=== PATIENT | female | born 1950 | race Caucasian/White ===

== ENCOUNTER 2018-06-08 11:07 | Inpatient (IN) | payer MEDICARE, OTHER ==
[~2018-06-08] VITALS: Ht 167.6 cm; Wt 114.6 kg
[~2018-06-08 11:07] MED LIST: EFFEXOR XR75 MG/CAP PO; NORCO 325 MG-51 TAB PO; RISPERDAL3 MG; RISPERDAL3 MG PO; SEROQUEL XR150 MG PO; ZITHROMAX Z PA250 MG PO; ZOCOR 40MG40 MG PO; ZOLOFT; ZOLOFT 100MG100 MG; [UNRECOGNIZED DRUG - OTHER]
[2018-06-08 11:52] LABS: BASO % 0.2 % (0.0-2.0); EOS % 0.1 % (0-4.0); GRAN # 9.1 (1.4-6.5); HEMATOCRIT 42.5 % (37.0-47.0); HEMOGLOBIN 14.3 g/dl (12.5-16.0); LYMPH # 0.4 (1.2-3.4); LYMPH % 4.2 % (20.0-51.0); MEAN CELL VOLUME 91 fl (80.0-100.0); MEAN CORPUSCULAR HEMOGLOBIN 31 pg (27.0-31.0); MEAN CORPUSCULAR HGB CONC 34 g/dl (33.0-37.0); MEAN PLATELET VOLUME 10.9 fl (7.4-10.4); MONO # 0.7 (0.1-0.6); MONO % 6.8 % (1.7-9.3); PLATELET COUNT 109 K/mm3 (130-400); RED BLOOD COUNT 4.68 M/mm3 (4.10-5.30); REDCELL DISTRIBUTION WIDTH-CV 12.5 % (11.5-14.5)
[2018-06-08 11:55] LABS: INR 1.2 (0.8-3.0); PROTHROMBIN TIME 13.3 SECONDS (9.7-12.8)
[2018-06-08 12:05] LABS: ALANINE AMINOTRANSFERASE 65 U/L (9-52); ALKALINE PHOSPHATASE 156 U/L (50-136); ANION GAP 11 mmol/L (7-16); AST,SGOT 75 U/L (15-37); BILIRUBIN,TOTAL 2.7 mg/dL (0.0-1.0); BLOOD UREA NITROGEN 15 mg/dL (7-17); CALCIUM 8.7 mg/dL (8.4-10.2); CARBON DIOXIDE 24 mmol/L (22-30); CHLORIDE 98 mmol/L (98-107); CREATININE, serum 0.84 mg/dL (0.52-1.25); GLUCOSE 114 mg/dL (74-106); POTASSIUM 4.1 mmol/L (3.4-5.0); SODIUM 133 mmol/L (137-145)
[2018-06-08 12:17] LABS: C-REACTIVE PROTEIN 23.2 mg/dL (0.0-0.9); TROPONIN-I < 0.012 ng/mL (0.000-0.034)
[2018-06-08] MEDS ORDERED: PRAVACHOL 40MG40 MG PO (14:13)
[2018-06-08] MEDS ORDERED: EFFEXOR-XR150 MG PO (14:13)
[2018-06-08] MEDS ORDERED: RT ALBUTER2.5 MG/0.5 IH (14:15)
[2018-06-08 14:33] LABS: ARTERIAL BLD GAS O2 SATURATION 93.5 % (92-100); ARTERIAL BLD GAS TCO2 CT 24.6; ARTERIAL BLOOD GAS BASE EXCESS -0.6 (-2-2); ARTERIAL BLOOD GAS HCO3 23.4 meq/L (22-26); ARTERIAL BLOOD GAS PCO2 36.8 mmHg (35-45); ARTERIAL BLOOD GAS PO2 67.4 mmHg (80-100); ARTERIAL BLOOD GAS pH 7.42 (7.35-7.45)
[2018-06-08 15:36] VITALS: BP 128/58; PULSE 101; TEMP 98.3
[2018-06-08 21:11] VITALS: BP 125/66; PULSE 91; TEMP 97.8
[2018-06-09] VITALS (9 sets, daily range): BP systolic 100–160; BP diastolic 53–79; PULSE 69–150; TEMP 97.3–102.9
[2018-06-09 00:45] LABS: COAG INR 1.3 (0.9-1.2)
[2018-06-09 08:13] LABS: BASO % 0.2 % (0.0-2.0); GRAN # 5.5 (1.4-6.5); GRAN % 89.8 % (42.2-75.2); HEMATOCRIT 39.5 % (37.0-47.0); HEMOGLOBIN 12.8 g/dl (12.5-16.0); LYMPH # 0.5 (1.2-3.4); LYMPH % 7.7 % (20.0-51.0); MEAN CELL VOLUME 93 fl (80.0-100.0); MEAN CORPUSCULAR HEMOGLOBIN 30 pg (27.0-31.0); MEAN CORPUSCULAR HGB CONC 32 g/dl (33.0-37.0); MEAN PLATELET VOLUME 11.2 fl (7.4-10.4); MONO # 0.1 (0.1-0.6); PLATELET COUNT 123 K/mm3 (130-400); RED BLOOD COUNT 4.25 M/mm3 (4.10-5.30); REDCELL DISTRIBUTION WIDTH-CV 12.5 % (11.5-14.5)
[2018-06-09 08:26] LABS: ALBUMIN 3.5 gm/dL (3.5-5.0); BILIRUBIN,TOTAL 1.7 mg/dL (0.0-1.0); CALCIUM 8.6 mg/dL (8.4-10.2); CREATININE, serum 0.67 mg/dL (0.52-1.25); POTASSIUM 3.4 mmol/L (3.4-5.0); TOTAL PROTEIN 7.2 gm/dL (6.4-8.2)
[2018-06-09 10:06] LABS: FACTOR V LEIDEN MUTATION B Negative (Negative); PARTIAL THROMBLASTIN TIME 31.5 seconds (25.0-35.0); PT G20210A MUTATION B Negative (Negative)
[2018-06-10] VITALS (7 sets, daily range): BP systolic 91–125; BP diastolic 57–66; PULSE 90–113; TEMP 97.4–97.8
[2018-06-10 03:09] LABS: COLLECTION METHOD CLEAN CATCH
[2018-06-10 03:51] LABS: GRANULAR CAST >12 /lpf; HYALINE CAST >12 /lpf; MUCOUS Present /lpf; PH 5 (5-8); RED BLOOD CELL CAST >12 /lpf; URINE APPEARANCE Cloudy; URINE BACTERIA Rare /hpf; URINE BILIRUBIN Positive (NEGATIVE); URINE BLOOD 2+ (NEGATIVE); URINE COLOR Amber; URINE GLUCOSE Negative (NEGATIVE); URINE KETONE Negative (NEGATIVE); URINE LEUKOCYTE ESTERASE Trace (NEGATIVE); URINE NITRATE Negative (NEGATIVE); URINE PROTEIN(semi-quant) 2+ (NEGATIVE); URINE UROBILINOGEN >=4.0 mg/dL (NEGATIVE)
[2018-06-11 03:01] VITALS: BP 127/67; PULSE 98; TEMP 97.8
[2018-06-11 06:05] LABS: HEMOGLOBIN 11.2 g/dl (12.5-16.0); MEAN CELL VOLUME 93 fl (80.0-100.0); MEAN CORPUSCULAR HEMOGLOBIN 30 pg (27.0-31.0); MEAN CORPUSCULAR HGB CONC 33 g/dl (33.0-37.0); MEAN PLATELET VOLUME 11.6 fl (7.4-10.4); PLATELET COUNT 119 K/mm3 (130-400); RED BLOOD COUNT 3.71 M/mm3 (4.10-5.30); REDCELL DISTRIBUTION WIDTH-CV 13.2 % (11.5-14.5)
[2018-06-11 06:08] LABS: HEMATOCRIT 34.4 % (37.0-47.0)
[2018-06-11 06:13] LABS: ALBUMIN 2.8 gm/dL (3.5-5.0); BILIRUBIN,TOTAL 0.5 mg/dL (0.0-1.0); CALCIUM 8.2 mg/dL (8.4-10.2); CREATININE, serum 0.81 mg/dL (0.52-1.25); POTASSIUM 3.6 mmol/L (3.4-5.0); TOTAL PROTEIN 6.1 gm/dL (6.4-8.2)
[2018-06-11 07:06] LABS: BAND 43 % (0-10); LYMPHOCYTE 7 % (20.0-51.0); METAMYELOCYTE 1 % (0-0); NEUTROPHILS 47 % (42.0-75.2)
[2018-06-11 07:07] LABS: HYPOCHROMIA 1+; PLATELET ESTIMATE DECREASED (NORMAL)
[2018-06-11 07:08] LABS: DOHLE BODIES PRESENT
[2018-06-11 07:42] VITALS: BP 119/72; PULSE 87; TEMP 97.8
[2018-06-11 10:31] LABS: HEMOGLOBIN 12.1 g/dl (12.5-16.0); MEAN CELL VOLUME 92 fl (80.0-100.0); MEAN CORPUSCULAR HEMOGLOBIN 30 pg (27.0-31.0); MEAN CORPUSCULAR HGB CONC 33 g/dl (33.0-37.0); MEAN PLATELET VOLUME 12.1 fl (7.4-10.4); PLATELET COUNT 128 K/mm3 (130-400); RED BLOOD COUNT 4.01 M/mm3 (4.10-5.30); REDCELL DISTRIBUTION WIDTH-CV 13.3 % (11.5-14.5)
[2018-06-11 10:32] LABS: HEMATOCRIT 36.8 % (37.0-47.0)
[2018-06-11 10:48] LABS: BAND 44 % (0-10); LYMPHOCYTE 5 % (20.0-51.0); NEUTROPHILS 51 % (42.0-75.2); PLATELET ESTIMATE DECREASED (NORMAL)
[2018-06-11 13:08] VITALS: BP 119/67; PULSE 91; TEMP 97.6
[2018-06-11 16:22] VITALS: BP 132/70; PULSE 86; TEMP 97.8
[2018-06-11 20:41] VITALS: BP 131/62; PULSE 85; TEMP 97.6
[2018-06-12 03:50] VITALS: BP 108/61; PULSE 75; TEMP 98.3
[2018-06-12 06:52] LABS: HEMOGLOBIN 11.6 g/dl (12.5-16.0); MEAN CELL VOLUME 92 fl (80.0-100.0); MEAN CORPUSCULAR HEMOGLOBIN 30 pg (27.0-31.0); MEAN CORPUSCULAR HGB CONC 33 g/dl (33.0-37.0); MEAN PLATELET VOLUME 11.3 fl (7.4-10.4); PLATELET COUNT 130 K/mm3 (130-400); RED BLOOD COUNT 3.85 M/mm3 (4.10-5.30); REDCELL DISTRIBUTION WIDTH-CV 13.2 % (11.5-14.5)
[2018-06-12 06:54] VITALS: BP 151/85; PULSE 82; TEMP 98.4
[2018-06-12 06:59] LABS: HEMATOCRIT 35.3 % (37.0-47.0)
[2018-06-12 07:05] LABS: ALBUMIN 2.9 gm/dL (3.5-5.0); BILIRUBIN,TOTAL 0.3 mg/dL (0.0-1.0); CREATININE, serum 0.61 mg/dL (0.52-1.25); POTASSIUM 3.7 mmol/L (3.4-5.0); TOTAL PROTEIN 6.2 gm/dL (6.4-8.2)
[2018-06-12 07:28] LABS: BAND 15 % (0-10); LYMPHOCYTE 10 % (20.0-51.0); NEUTROPHILS 72 % (42.0-75.2); PLATELET ESTIMATE NORMAL (NORMAL)
[2018-06-12 08:29] LABS: ANTI-THROMBIN III 69 % (72-128)
[2018-06-12 08:33] LABS: PROTEIN C ACTIVITY 50 % (70-150)
[2018-06-12 08:39] LABS: INR 1.1 (0.8-3.0); PROTHROMBIN TIME 12.3 SECONDS (9.7-12.8)
[2018-06-12 10:40] LABS: COLLECTION METHOD CLEAN CATCH
[2018-06-12 10:46] LABS: MUCOUS Present /lpf; PH 6 (5-8); SQUAMOUS EPITHELIAL 0-2 /hpf; URINE APPEARANCE Clear; URINE BACTERIA None Seen /hpf; URINE BILIRUBIN Negative (NEGATIVE); URINE BLOOD 1+ (NEGATIVE); URINE COLOR Yellow; URINE GLUCOSE Negative (NEGATIVE); URINE KETONE Negative (NEGATIVE); URINE LEUKOCYTE ESTERASE Negative (NEGATIVE); URINE NITRATE Negative (NEGATIVE); URINE PROTEIN(semi-quant) Negative (NEGATIVE); URINE RBC 0-2 /hpf; URINE UROBILINOGEN Negative (NEGATIVE)
[2018-06-12 11:21] VITALS: BP 137/78; PULSE 73; TEMP 98.7
[2018-06-12 13:28] LABS: LUPUS ANTICOAGULANT INR 1.5 (()); LUPUS ANTICOAGULANT PT 16.4 sec (())
[2018-06-12 15:27] VITALS: BP 152/85; PULSE 79; TEMP 97.7
[2018-06-12 19:56] VITALS: BP 132/70; PULSE 78; TEMP 98.5
[2018-06-13 00:32] VITALS: BP 134/76; PULSE 74; TEMP 98.7
[2018-06-13 04:06] VITALS: BP 135/89; PULSE 70; TEMP 98.6
[2018-06-13 06:24] LABS: HEMOGLOBIN 11.3 g/dl (12.5-16.0); MEAN CELL VOLUME 93 fl (80.0-100.0); MEAN CORPUSCULAR HEMOGLOBIN 30 pg (27.0-31.0); MEAN CORPUSCULAR HGB CONC 32 g/dl (33.0-37.0); MEAN PLATELET VOLUME 11.3 fl (7.4-10.4); PLATELET COUNT 144 K/mm3 (130-400); RED BLOOD COUNT 3.78 M/mm3 (4.10-5.30); REDCELL DISTRIBUTION WIDTH-CV 13.5 % (11.5-14.5)
[2018-06-13 06:26] LABS: INR 1.2 (0.8-3.0)
[2018-06-13 06:28] LABS: HEMATOCRIT 35.3 % (37.0-47.0)
[2018-06-13 06:36] LABS: ALBUMIN 2.7 gm/dL (3.5-5.0); BILIRUBIN,TOTAL 0.3 mg/dL (0.0-1.0); CALCIUM 7.6 mg/dL (8.4-10.2); CREATININE, serum 0.6 mg/dL (0.52-1.25); POTASSIUM 3.9 mmol/L (3.4-5.0)
[2018-06-13 06:56] VITALS: BP 131/84; PULSE 68; TEMP 97.7
[2018-06-13 11:34] VITALS: BP 155/88; PULSE 77; TEMP 97.5
[2018-06-13 15:27] VITALS: BP 142/84; PULSE 72; TEMP 97.9
[2018-06-13 20:10] VITALS: BP 142/83; PULSE 83; TEMP 98.5
[2018-06-14] VITALS (7 sets, daily range): BP systolic 131–154; BP diastolic 67–88; PULSE 17–75; TEMP 98–98.5
[2018-06-14 07:39] LABS: HEMOGLOBIN 10.9 g/dl (12.5-16.0); MEAN CELL VOLUME 94 fl (80.0-100.0); MEAN CORPUSCULAR HEMOGLOBIN 30 pg (27.0-31.0); MEAN CORPUSCULAR HGB CONC 32 g/dl (33.0-37.0); MEAN PLATELET VOLUME 11.5 fl (7.4-10.4); PLATELET COUNT 170 K/mm3 (130-400); RED BLOOD COUNT 3.63 M/mm3 (4.10-5.30); REDCELL DISTRIBUTION WIDTH-CV 13.5 % (11.5-14.5)
[2018-06-14 07:41] LABS: HEMATOCRIT 34.2 % (37.0-47.0)
[2018-06-14 07:56] LABS: CALCIUM 7.4 mg/dL (8.4-10.2); CREATININE, serum 0.61 mg/dL (0.52-1.25); POTASSIUM 3.5 mmol/L (3.4-5.0)
[2018-06-14 07:59] LABS: BAND 9 % (0-10); HYPOCHROMIA 2+; LYMPHOCYTE 24 % (20.0-51.0); NEUTROPHILS 63 % (42.0-75.2); PLATELET ESTIMATE NORMAL (NORMAL)
[2018-06-14 08:34] LABS: INR 1.5 (0.8-3.0); PROTHROMBIN TIME 16.6 SECONDS (9.7-12.8)
[2018-06-15 03:55] VITALS: BP 131/66; PULSE 71; TEMP 98.5
[2018-06-15 07:31] LABS: MEAN CELL VOLUME 93 fl (80.0-100.0); MEAN CORPUSCULAR HEMOGLOBIN 31 pg (27.0-31.0); MEAN CORPUSCULAR HGB CONC 33 g/dl (33.0-37.0); MEAN PLATELET VOLUME 10.6 fl (7.4-10.4); PLATELET COUNT 208 K/mm3 (130-400); RED BLOOD COUNT 3.93 M/mm3 (4.10-5.30); REDCELL DISTRIBUTION WIDTH-CV 13.4 % (11.5-14.5)
[2018-06-15 07:32] VITALS: BP 120/69; PULSE 75; TEMP 97.8
[2018-06-15 07:34] LABS: HEMATOCRIT 36.7 % (37.0-47.0)
[2018-06-15 07:45] LABS: ALBUMIN 2.9 gm/dL (3.5-5.0); BILIRUBIN,TOTAL 0.3 mg/dL (0.0-1.0); CALCIUM 7.4 mg/dL (8.4-10.2); CREATININE, serum 0.61 mg/dL (0.52-1.25); POTASSIUM 3.7 mmol/L (3.4-5.0); TOTAL PROTEIN 6.1 gm/dL (6.4-8.2)
[2018-06-15 07:49] LABS: BAND 9 % (0-10); EOSINOPHIL 3 % (0-4); LYMPHOCYTE 27 % (20.0-51.0); METAMYELOCYTE 1 % (0-0); NEUTROPHILS 59 % (42.0-75.2); PLATELET ESTIMATE NORMAL (NORMAL)
[2018-06-15 07:50] LABS: HYPOCHROMIA 1+
[2018-06-15 08:11] LABS: INR 2.4 (0.8-3.0); PROTHROMBIN TIME 27.8 SECONDS (9.7-12.8)
[2018-06-15 11:35] VITALS: BP 148/80; PULSE 73; TEMP 97.9
[2018-06-15] MEDS ORDERED: CEFTRIAXON2 GM/50 ML IV (14:25)
[2018-06-15] MEDS ORDERED: TYLENOL 325MG325 MG PO (14:26)
[2018-06-15] MEDS ORDERED: COUMADIN4 MG PO (14:26)
[2018-06-15] MEDS ORDERED: FLAGYL 500500 MG/100 IV (14:26)
[2018-06-15] MEDS ORDERED: PROBIOTIC ACID1 EAC3 PO (14:27)
[2018-06-15 16:00] VITALS: BP 148/80; PULSE 73; TEMP 97.9
== END 2018-06-15 16:30 | DRG 871 ==
LOC: COL.ER 11:07 → MEDICAL 13:49
PROVIDERS: Family Medicine; Internal Medicine; Nurse Practitioner; Physician Assistant; Student in an Organized Health Care Education/Training Program
DX: A40.8 Other streptococcal sepsis (principal); I81 Portal vein thrombosis; J44.1 Chronic obstructive pulmonary disease with (acute) exacerbation; E78.5 Hyperlipidemia, unspecified; F25.9 Schizoaffective disorder, unspecified; R94.5 Abnormal results of liver function studies
CPT/HCPCS: 99223-AI; 99233-AI; 99239; C1751; C1894; J0696; J1450; J1650; J1956; J2543; J2930; J3370; J7030; J7040; J7512; Q9967

== ENCOUNTER → 2018-07-02 | Outpatient (REF) ==
[~2018-07-02] MED LIST changes: +CEFTRIAXON2 GM/50 ML IV; +COUMADIN4 MG PO; +EFFEXOR-XR150 MG PO; +FLAGYL 500500 MG/100 IV; +PRAVACHOL 40MG40 MG PO; +PROBIOTIC ACID1 EAC3 PO; +RT ALBUTER2.5 MG/0.5 IH; +TYLENOL 325MG325 MG PO
[2018-07-02 09:42] LABS: ALBUMIN 3.8 gm/dL (3.5-5.0); BILIRUBIN UNCONJUGATED 0.1 mg/dL (0.0-1.1); BILIRUBIN,DIRECT 0.2 mg/dL (0.0-0.4); BILIRUBIN,TOTAL 0.3 mg/dL (0.0-1.0); TOTAL PROTEIN 7.3 gm/dL (6.4-8.2)
== END ==
LOC: ZLAB.STJ 09:06
PROVIDERS: Family Medicine
DX: Z51.81 Encounter for therapeutic drug level monitoring (principal)

== ENCOUNTER → 2018-07-10 | Outpatient (CLI) | payer MEDICARE, OTHER | LOC: COL.RAD 07:59 | DX: K57.92 Diverticulitis of intestine, part unspecified, without perforation or abscess without bleeding (principal); Z90.49 Acquired absence of other specified parts of digestive tract | CPT/HCPCS: Q9967 ==

== ENCOUNTER → 2018-08-16 | Outpatient (CLI) | payer MEDICARE, OTHER | LOC: MC.RAD 09:40 | DX: Z12.31 Encounter for screening mammogram for malignant neoplasm of breast (principal) ==

== ENCOUNTER 2018-08-21 07:33 | Day surgery (SDC) | payer MEDICARE, OTHER ==
[~2018-08-21] VITALS: Ht 167.6 cm; Wt 108.1 kg
[2018-08-21] MEDS ORDERED: FLORASTOR250 MG PO (07:51)
[2018-08-21] MEDS ORDERED: VITAMIN D31000 I1 PO (07:52)
[2018-08-21] MEDS ORDERED: PROAIR HFA0.09 MG/AC IH (07:53)
[2018-08-21] MEDS ORDERED: STIOLTO RESPIMAT4 GM IH (07:53)
[2018-08-21 08:08] VITALS: BP 135/93; PULSE 105; TEMP 97.5
[2018-08-21 09:35] VITALS: BP 106/82; PULSE 88; TEMP 96.7
[2018-08-21 09:50] VITALS: BP 127/84; PULSE 84
[2018-08-21 10:05] VITALS: BP 145/92; PULSE 85
[2018-08-21 10:20] VITALS: BP 126/90; PULSE 90
== END 2018-08-21 10:35 | disposition home or self-care (01) ==
LOC: SDCO 07:33
DX: K63.5 Polyp of colon (principal); K57.30 Diverticulosis of large intestine without perforation or abscess without bleeding; K64.0 First degree hemorrhoids; J44.9 Chronic obstructive pulmonary disease, unspecified; F25.0 Schizoaffective disorder, bipolar type; G89.29 Other chronic pain; M54.5 Low back pain; F17.210 Nicotine dependence, cigarettes, uncomplicated; Z90.49 Acquired absence of other specified parts of digestive tract; Z79.01 Long term (current) use of anticoagulants; Z91.011 Allergy to milk products; Z91.010 Allergy to peanuts
CPT/HCPCS: J2704; J7120

== ENCOUNTER 2019-05-31 17:34 | Emergency (ER) | payer MEDICARE, OTHER ==
[~2019-05-31] VITALS: Ht 165.1 cm; Wt 102.7 kg
[~2019-05-31 17:34] MED LIST changes: +FLORASTOR250 MG PO; +PROAIR HFA0.09 MG/AC IH; +STIOLTO RESPIMAT4 GM IH; +VITAMIN D31000 I1 PO
[2019-05-31 17:47] VITALS: TEMP 97.9
[2019-05-31] MEDS ORDERED: PRINIVIL10 MG PO (17:47)
[2019-05-31 18:24] LABS: BASO % 0.3 % (0.0-2.0); EOS # 0.2 (0.0-0.7); EOS % 1.9 % (0-4.0); GRAN # 6.1 (1.4-6.5); GRAN % 64.4 % (42.2-75.2); HEMATOCRIT 46.3 % (37.0-47.0); HEMOGLOBIN 15.1 g/dl (12.5-16.0); LYMPH # 2.6 (1.2-3.4); LYMPH % 27.3 % (20.0-51.0); MEAN CELL VOLUME 92 fl (80.0-100.0); MEAN CORPUSCULAR HEMOGLOBIN 30 pg (27.0-31.0); MEAN CORPUSCULAR HGB CONC 33 g/dl (33.0-37.0); MEAN PLATELET VOLUME 10.3 fl (7.4-10.4); MONO # 0.6 (0.1-0.6); MONO % 5.8 % (1.7-9.3); PLATELET COUNT 241 K/mm3 (130-400); RED BLOOD COUNT 5.05 M/mm3 (4.10-5.30); REDCELL DISTRIBUTION WIDTH-CV 12.5 % (11.5-14.5)
[2019-05-31 18:31] LABS: ALANINE AMINOTRANSFERASE 13 U/L (9-52); ALBUMIN 4.6 gm/dL (3.5-5.0); ALKALINE PHOSPHATASE 103 U/L (50-136); ANION GAP 10 mmol/L (7-16); AST,SGOT 24 U/L (15-37); BILIRUBIN,TOTAL 0.3 mg/dL (0.0-1.0); BLOOD UREA NITROGEN 14 mg/dL (7-17); CARBON DIOXIDE 28 mmol/L (22-30); CHLORIDE 106 mmol/L (98-107); CREATININE, serum 0.91 (0.52-1.25); GLUCOSE 123 mg/dL (74-106); POTASSIUM 4.2 mmol/L (3.4-5.0); SODIUM 143 mmol/L (137-145); TOTAL PROTEIN 8.2 gm/dL (6.4-8.2)
[2019-05-31 18:39] LABS: TROPONIN-I < 0.012 ng/mL (0.000-0.035)
[2019-05-31] MEDS ORDERED: ANTIVERT 25MG25 MG PO (19:18)
[2019-05-31 19:34] VITALS: BP 120/82; PULSE 77
== END 2019-05-31 19:43 | disposition home or self-care (01) ==
LOC: COL.ER 17:34
PROVIDERS: Emergency Medicine
DX: F25.9 Schizoaffective disorder, unspecified (principal); I10 Essential (primary) hypertension; R42 Dizziness and giddiness; J44.9 Chronic obstructive pulmonary disease, unspecified; E78.5 Hyperlipidemia, unspecified

== ENCOUNTER → 2019-09-05 | Outpatient (CLI) | payer MEDICARE, OTHER ==
[~2019-09-05] MED LIST changes: +ANTIVERT 25MG25 MG PO; +PRINIVIL10 MG PO
== END ==
LOC: MC.RAD 13:57
DX: Z12.31 Encounter for screening mammogram for malignant neoplasm of breast (principal); N63.20 Unspecified lump in the left breast, unspecified quadrant

== ENCOUNTER → 2019-09-11 | Outpatient (CLI) | payer MEDICARE, OTHER | LOC: MC.RAD 09:29 | DX: N60.02 Solitary cyst of left breast (principal) ==

== ENCOUNTER 2020-04-20 19:13 | Emergency (ER) | payer MEDICARE, OTHER ==
[~2020-04-20] VITALS: Ht 167.6 cm; Wt 109.1 kg
[2020-04-20 19:23] VITALS: TEMP 97.1
[2020-04-20 20:10] LABS: BASO % 0.3 % (0.0-2.0); EOS # 0.3 (0.0-0.7); EOS % 2.8 % (0-4.0); GRAN # 5.3 (1.4-6.5); GRAN % 57.6 % (42.2-75.2); HEMATOCRIT 44.2 % (37.0-47.0); HEMOGLOBIN 14.3 g/dl (12.5-16.0); LYMPH % 32.7 % (20.0-51.0); MEAN CELL VOLUME 95 fl (80.0-100.0); MEAN CORPUSCULAR HEMOGLOBIN 31 pg (27.0-31.0); MEAN CORPUSCULAR HGB CONC 32 g/dl (33.0-37.0); MEAN PLATELET VOLUME 10.3 fl (7.4-10.4); MONO # 0.6 (0.1-0.6); MONO % 6.3 % (1.7-9.3); PLATELET COUNT 215 K/mm3 (130-400); RED BLOOD COUNT 4.66 M/mm3 (4.10-5.30); REDCELL DISTRIBUTION WIDTH-CV 12.6 % (11.5-14.5)
[2020-04-20 20:34] LABS: ALBUMIN 4.6 gm/dL (3.5-5.0); BILIRUBIN,TOTAL 0.6 mg/dL (0.0-1.0); C-REACTIVE PROTEIN 2.6 mg/dL (0.0-0.9); CALCIUM 9.6 mg/dL (8.4-10.2); CREATININE, serum 1.06 (0.52-1.25); POTASSIUM 4.4 mmol/L (3.4-5.0); TOTAL PROTEIN 8.6 gm/dL (6.4-8.2)
[2020-04-20 21:12] LABS: COLLECTION METHOD CLEAN CATCH
[2020-04-20] MEDS ORDERED: FLAGYL500 MG PO (21:41)
[2020-04-20] MEDS ORDERED: CIPRO 500MG TA500 MG PO (21:41)
[2020-04-20 21:47] LABS: MUCOUS Present /lpf; PH 5 (5-8); SQUAMOUS EPITHELIAL 0-2 /hpf; URINE APPEARANCE Clear; URINE BACTERIA Rare /hpf; URINE BILIRUBIN Negative (NEGATIVE); URINE BLOOD 1+ (NEGATIVE); URINE COLOR Yellow; URINE GLUCOSE Negative (NEGATIVE); URINE KETONE Negative (NEGATIVE); URINE LEUKOCYTE ESTERASE Trace (NEGATIVE); URINE NITRATE Negative (NEGATIVE); URINE PROTEIN(semi-quant) Negative (NEGATIVE); URINE UROBILINOGEN Negative (NEGATIVE)
[2020-04-20 22:05] VITALS: BP 114/73; PULSE 84
== END 2020-04-20 22:05 | disposition home or self-care (01) ==
LOC: COL.ER 19:13
PROVIDERS: Family Medicine
DX: K63.89 Other specified diseases of intestine (principal)
CPT/HCPCS: J2270; J2405; J7120; Q9967

== ENCOUNTER → 2020-09-22 | Outpatient (CLI) | payer MEDICARE, OTHER ==
[~2020-09-22] MED LIST changes: +CIPRO 500MG TA500 MG PO; +FLAGYL500 MG PO
== END ==
LOC: MC.RAD 09:11
DX: Z12.31 Encounter for screening mammogram for malignant neoplasm of breast (principal)

== ENCOUNTER → 2021-04-08 | Outpatient (CLI) | payer MEDICARE, OTHER | LOC: COL.RAD 13:03 | DX: Z12.2 Encounter for screening for malignant neoplasm of respiratory organs (principal); J44.9 Chronic obstructive pulmonary disease, unspecified; F17.210 Nicotine dependence, cigarettes, uncomplicated ==

== ENCOUNTER → 2023-08-01 | Outpatient (CLI) | payer MEDICARE, OTHER | LOC: CANSCHCLI → COL.CARD 10:41 → COL.PUL 10:50 → COL.CARD 10:50 | DX: R06.02 Shortness of breath (principal) ==

== ENCOUNTER → 2023-11-23 | Outpatient (CLI) | payer MEDICARE, OTHER | LOC: COL.RAD 13:55 | DX: Z12.2 Encounter for screening for malignant neoplasm of respiratory organs (principal); Z87.891 Personal history of nicotine dependence ==